=== PATIENT | female | born 2000 | race Caucasian/White ===

== ENCOUNTER 2023-04-04 21:29 | Emergency (ER) | payer OTHER ==
[~2023-04-04] VITALS: Ht 180.3 cm; Wt 88.4 kg
[2023-04-04] MEDS ORDERED: methylPREDNISolone INJ 125 MG VIAL IM ONE (21:45)
[2023-04-04] MEDS ORDERED: PRD50T PO (21:51)
--- NOTE | 2023-04-04 21:51 | ED Integumentary General ---
General Chief Complaint: Skin/Wound Problems Stated Complaint: RASH ON LEGS/GROIN AREA Source: patient Exam Limitations: no limitations History of Present Illness Date Seen by Provider: Apr 04, 2023 Time Seen by Provider: 21:45 Initial Comments Patient is a 23-year-old female presents ED with a lower extremity rash. This rash started this morning. She states it felt itchy in her legs. She woke up around 2 PM and noted some small red bumps. She states she took sertraline and ibuprofen and states that the bumps are starting to improve. She recently returned from [place] this past Sunday. She denies of any change in soaps, detergents, food. No known history of allergies. She states her brother had a similar type rash but not sure if there is any correlation. She denies fever, chills, recent medication changes, sore throat, difficulty breathing, cough, fever, chills, vomiting or diarrhea. Allergies and Home Medications Allergies Coded Allergies: No Known Drug Allergies (Unverified , 04/04/23) Patient Home Medication List Home Medication List Reviewed: Yes Prednisone (Prednisone) 50 Mg Tab, 50 MG PO DAILY Prescribed by: OTTONIEL GARG on 04/04/232150 Review of Systems Review of Systems Constitutional: No chills, No diaphoresis EENTM: No hearing loss, No ear pain, No blurred vision, No mouth pain, No mouth swelling, No throat pain, No throat swelling Respiratory: No cough Cardiovascular: No chest pain, No edema Gastrointestinal: No abdominal pain, No diarrhea, No nausea, No vomiting Genitourinary: No decreased output, No discharge Musculoskeletal: No back pain, No joint pain Skin: change in color, pruritus, rash All Other Systems Reviewed Negative Unless Noted: Yes Past [id number] Hx Patient Social History Tobacco Use?: No Substance use?: No Alcohol Use?: Yes Alcohol Frequency: Once in a while Pt feels they are or have been: No Physical Exam Vital Signs Vital Signs - First Documented 04/04/23 21:35 Temp 36.6 Pulse 86 Resp 16 B/P (MAP) 149/99 (116) Pulse Ox 100 O2 Delivery Room Air Capillary Refill : General Appearance: WD/WN, no apparent distress HEENT: PERRL/EOMI, normal ENT inspection, TMs normal, pharynx normal Neck: non-tender, full range of motion, supple, normal inspection Cardiovascular: regular rate, rhythm, no edema, no gallop, no JVD Respiratory: chest non-tender, lungs clear, normal breath sounds, no respiratory distress, no accessory muscle use Gastrointestinal: normal bowel sounds, non tender, soft, no organomegaly Back: normal inspection, no CVA tenderness Extremities: normal range of motion, non-tender, other (Rash) Neurologic/Psychiatric: ben day artist II-XII nml as tested, no motor/sensory deficits, alert, normal mood/affect Skin: rash (Lower extremity erythematous papular edematous rash. No pustules, vesicles, crusting.) Progress/Results/Core Measures Results/Orders My Orders Orders - SANJUANA BYRNES Methylprednisolone Sod Succ (Methylpredn (04/04/23 21:45) Medications Given in ED Current Medications Medications Dose Ordered Sig/Elizabeth Route Start Time Stop Time Status Last Admin Dose Admin Methylprednisolone Sodium Succinate 125 mg ONCE ONCE IM 04/04/23 21:45 04/04/23 21:46 DC 04/04/23 21:57 125 MG Vital Signs/I&O 04/04/23 21:35 Temp 36.6 Pulse 86 Resp 16 B/P (MAP) 149/99 (116) Pulse Ox 100 O2 Delivery Room Air Departure Communication (PCP) Differential diagnoses allergic reaction, viral rash. On exam patient has a lower extremity erythematous papular rash. No pustules, vesicles or crusting. Does not appear cellulitic or fungal. Symptoms started this morning with itching and developed a red papular rash which she states it appears to be improving. She did take certrizine earlier which seemed to help as well as ibuprofen.. Recently returned from [place]. Brother developed a rash as well but unsure if there is any correlation. Does not appear to be scabies or bedbugs. She has no viral symptoms such as cough, runny nose, sore throat. Oral pharynx pink without erythema, swelling, exudate. Afebrile. No change in soaps, laundry detergents, food or medication changes. Patient received IM dose of Solu-Medrol 125mg. She refused Benadryl. This should help and take care of her rash as I am concerned for more a hypersensitivity type rash. If continue symptoms will discharge with oral prednisone. Recommend continue Benadryl. If any worsening symptoms to return back to ED for further evaluation. Impression Primary Impression: Rash Disposition: HOME, SELF-CARE Condition: Stable Departure-Patient Inst. Decision time for Depature: 21:47 Referrals: [facility] (PCP/Family) Primary Care Physician Patient Instructions: Skin Rash ED Scripts Prednisone (Prednisone) 50 Mg Tab 50 MG PO DAILY for 5 Days, #5 TAB Prov: SANJUANA BYRNES 04/04/23 SANJUANA BYRNES Apr 04, 2023 21:50
[2023-04-04 22:14] VITALS: BP 149/99
== END 2023-04-04 22:14 | disposition home or self-care (01) ==
LOC: ER 21:32
DX: R21 Rash and other nonspecific skin eruption (principal)
CPT/HCPCS: 99284